=== PATIENT | male | born 2000 | race Hispanic/Latino ===

== ENCOUNTER 2021-12-09 21:06 | Emergency (ER) | payer OTHER, SELFPAY ==
[2021-12-09] MEDS ORDERED: Acetaminophen 500 MG TAB ONE (22:19)
[2021-12-09 22:26] LABS: SARS-CoV-2 NAA Rapid Test Not Detected (NotDetected)
== END 2021-12-09 22:54 | disposition home or self-care (01) ==
LOC: CSHERS 21:06
DX: J06.9 Acute upper respiratory infection, unspecified (principal); Z20.822 Contact with and (suspected) exposure to COVID-19; Z03.818 Encounter for observation for suspected exposure to other biological agents ruled out
CPT/HCPCS: 87081; 87430; 99283

== ENCOUNTER 2022-10-20 14:19 | Emergency (ER) | payer SELFPAY ==
[2022-10-20 16:07] LABS: SARS-CoV-2 NAA Rapid Test Not Detected (NotDetected)
== END 2022-10-20 16:30 | disposition home or self-care (01) ==
LOC: CSHERS 14:19
DX: J06.9 Acute upper respiratory infection, unspecified (principal); Z20.822 Contact with and (suspected) exposure to COVID-19
CPT/HCPCS: 99284

== ENCOUNTER 2024-05-02 22:15 | Emergency (ER) | payer SELFPAY ==
[2024-05-02] MEDS ORDERED: Pantoprazole DR 40 MG TAB ONE (23:43)
[2024-05-03] MEDS ORDERED: Lidocaine 2% Viscous 10 mL, Alum & Magn 30 mL SSW SCH (00:01)
== END 2024-05-03 01:24 | disposition home or self-care (01) ==
LOC: CSHERS 22:15
DX: K21.9 Gastro-esophageal reflux disease without esophagitis (principal)
CPT/HCPCS: 99283